=== PATIENT | female | born 1980 | race Caucasian/White ===

== ENCOUNTER 2018-09-18 18:51 | Emergency (ER) | payer OTHER ==
[~2018-09-18] VITALS: Ht 170.2 cm; Wt 60.0 kg
[2018-09-18] MEDS ORDERED: SODIUM CHLORIDE 0.9% 1,000 ML IV ONE (20:17)
[2018-09-18] MEDS ORDERED: LORAZEPAM 2MG/ML CPJ IV ONE (20:30)
[2018-09-18] MEDS ORDERED: LAMOTRIGINE 100MG TABLET PO ONE (20:30)
[2018-09-18 20:33] LABS: BASOPHILS % 0.5 % (0.0-2.0); EOSINOPHILS % 0.4 % (0.0-5.0); HEMATOCRIT. 30.8 % (36.0-48.0); HEMOGLOBIN. 10.1 g/dL (12.0-16.0); LYMPHOCYTES % 18.4 % (20.0-50.0); MEAN CORPUSCULAR HEMOGLOBIN 25.1 pg (28.0-32.0); MEAN CORPUSCULAR VOLUME 76.4 fL (81.0-99.0); MEAN PLATELET VOLUME 6.2 fl (7.4-10.4); MONOCYTES % 5.6 % (2.0-8.0); NEUTROPHILS % 75.1 % (40.0-76.0); PLATELET 332 x1000/uL (130-400); RED BLOOD CELL COUNT 4.03 mill/uL (4.2-5.4); RED CELL DISTRIBUTION WIDTH 15.5 % (11.6-14.6)
[2018-09-18 20:38] LABS: CHLORIDE 107 mEq/L (98-107)
[2018-09-18 20:42] LABS: ETHANOL BLOOD < 10 mg/dL
[2018-09-18] MEDS ORDERED: LAMOTRIGINE 100MG TABLET PO SCH (21:00)
[2018-09-18 21:04] LABS: HCG SCREEN NEGATIVE
[2018-09-18 21:06] LABS: CLARITY URINE CLEAR (CLEAR); COLOR URINE YELLOW (YELLOW); KETONES URINE NEGATIVE (NEGATIVE); LEUKOCYTE ESTERASE URINE NEGATIVE (NEGATIVE); NITRITE URINE NEGATIVE (NEGATIVE); OCCULT BLOOD URINE NEGATIVE (NEGATIVE); PH URINE 8.5 (4.5-8.0); PROTEIN URINE NEGATIVE (NEGATIVE); SPECIFIC GRAVITY URINE 1.012 (1.005-1.030); UROBILINOGEN URINE 0.2 E.U./dL (0.2-1.0)
[2018-09-18 21:18] LABS: *AMPHETAMINES SCREEN URINE NEGATIVE (NEGATIVE); *BARBITURATES SCREEN URINE NEGATIVE (NEGATIVE); *BENZODIAZEPINES SCREEN URINE NEGATIVE (NEGATIVE); *COCAINE SCREEN URINE NEGATIVE (NEGATIVE); METHADONE URINE SCREEN NEGATIVE (NEGATIVE); OPIATES URINE SCREEN NEGATIVE (NEGATIVE); PHENCYCLIDINE URINE SCREEN NEGATIVE (NEGATIVE)
[2018-09-18 21:19] LABS: CANNABINOID URINE SCREEN NEGATIVE (NEGATIVE)
[2018-09-18] MEDS ORDERED: IOHEXOL-350 100 ML BOTTLE ONE (23:00)
[2018-09-19 00:33] VITALS: BP 124/66
== END 2018-09-19 00:37 | disposition home or self-care (01) ==
LOC: EDBD 18:51 → ER 19:18
DX: G40.909 Epilepsy, unspecified, not intractable, without status epilepticus (principal); R05 Cough; Z88.0 Allergy status to penicillin
CPT/HCPCS: 36415; 71045; 71275; 80053; 80305; 80320; 81003; 81025; 84703; 85025; 85379; 93005; 99285; J7030; Q9967; G0480